=== PATIENT | female | born 1980 | race Caucasian/White ===

== ENCOUNTER 2017-05-25 20:21 | Emergency (ER) | payer OTHER ==
[~2017-05-25] VITALS: Ht 162.6 cm; Wt 90.9 kg
[2017-05-25] MEDS ORDERED: OMEP20 PO (20:33)
[2017-05-25] MEDS ORDERED: CLAR250T PO (20:33)
[2017-05-25] MEDS ORDERED: AMOX1TAB15 PO (20:33)
[2017-05-25] MEDS ORDERED: IBUPROFEN 600 MG TABLET PO ONE (20:45)
[2017-05-25 20:49] VITALS: BP 124/80
== END 2017-05-25 23:01 | disposition home or self-care (01) ==
LOC: EMS 20:25
DX: R10.2 Pelvic and perineal pain (principal); V43.62XA Car passenger injured in collision with other type car in traffic accident, initial encounter; Y93.89 Activity, other specified; Y92.89 Other specified places as the place of occurrence of the external cause; Y99.8 Other external cause status
CPT/HCPCS: 72170; 99284